=== PATIENT | male | born 1995 | race Caucasian/White ===

== ENCOUNTER 2018-10-11 10:11 | Emergency (ER) | payer OTHER, MEDICAID ==
[~2018-10-11] VITALS: Ht 172.7 cm; Wt 100.0 kg
[2018-10-11] MEDS ORDERED: HYDROCODONE/ACETAMINOPHEN 5/325MG TABLET PO ONE (10:45)
[2018-10-11 12:34] VITALS: BP 134/82
== END 2018-10-11 12:36 | disposition home or self-care (01) ==
LOC: ER 10:11
DX: S02.2XXA Fracture of nasal bones, initial encounter for closed fracture (principal); M25.522 Pain in left elbow; M25.512 Pain in left shoulder; M25.552 Pain in left hip; M25.562 Pain in left knee; Y08.89XA Assault by other specified means, initial encounter; Y93.89 Activity, other specified; Y92.9 Unspecified place or not applicable
CPT/HCPCS: 70486; 73030; 73080; 73502; 73562; 99284